=== PATIENT | male | born 1990 | race Caucasian/White ===

== ENCOUNTER 2017-10-14 21:43 | Emergency (ER) | payer OTHER, SELFPAY ==
[2017-10-14] MEDS ORDERED: AMOXicillin 250 MG CAP ONE (22:00)
[2017-10-14] MEDS ORDERED: Dexamethasone 4 mg/ml Vial ONE (22:22)
== END 2017-10-14 22:28 ==
LOC: BURERS 21:43
DX: J20.9 Acute bronchitis, unspecified (principal); J01.90 Acute sinusitis, unspecified; F17.210 Nicotine dependence, cigarettes, uncomplicated
CPT/HCPCS: 94640; 94760; J1100; J7620